=== PATIENT | male | born 1980 | race Caucasian/White ===

== ENCOUNTER 2021-01-02 02:54 | Emergency (ER) | payer MEDICAID ==
[~2021-01-02] VITALS: Ht 175.3 cm; Wt 100.5 kg
--- NOTE | 2021-01-02 03:10 | PHYS DOC ---
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 Denies any recent traumas, travels, fevers, chest pain, shortness of breath, abdominal pain, nausea, vomiting, dysuria, hematuria or blood in the stool. States he does think he has had decreased urine output however though. Denies any blood in the urine or stool. States st ool is normal. States he is taking all his medications as prescribed. Review of Systems Review of Systems Review of systems otherwise unremarkable except noted in HPI Physical Exam Physical Exam Constitutional: Well developed, well nourished, no acute distress, non-toxic appearance. [] HENT: Normocephalic, atraumatic, bilateral external ears normal, oropharynx moist, no oral exudates, nose normal. [] Eyes: conjunctiva normal, no discharge. [] Neck: Normal range of motion, no tenderness, supple, no stridor. [] Cardiovascular:Heart rate regular rhythm, no murmur [] Lungs & Thorax: Bilateral breath sounds clear to auscultation [] Abdomen: Bowel sounds normal, soft, no tenderness, no masses, no pulsatile masses. [] Skin: Warm, dry, no erythema, no rash. [] Back: No tenderness, no CVA tenderness. [] Extremities: No tenderness, no cyanosis, no clubbing, ROM intact, mild bilateral pitting edema Neurologic: Alert and oriented X 3, normal motor function, normal sensory function, no focal deficits noted. [] Psychologic: Affect normal, judgement normal, mood normal. [] EKG EKG [] Radiology/Procedures Radiology/Procedures [] Heart Score C/O Chest Pain: No Risk Factors: Risk Factors: DM, Current or recent (<one month) smoker, HTN, HLP, family history of CAD, obesity. Risk Scores: Risk Factors: DM, Current or recent (<one month) smoker, HTN, HLP, family history of CAD, obesity. Course & Med Decision Making Course & Med Decision Making Patient is a 40-year-old male with a past history significant for heart transplant x2 on rejection meds who presents with shortness of breath and weight gain Vital signs initially notable for hypertension which improved during ED stay and mild tachypnea with normoxia. Placed on the monitor with IV access established. EKG with a rate of 76, QRS of 88, QTc of 400, no STEMI and slightly elevated BNP. Chest x-ray with enlarged cardiac silhouette and pulmonary vascular congestion. Laboratory analysis notable for mildly elevated creatinine at 1.5 which patient states is slightly above his normal of about 1.3 and hypomagnesemia. Started on light diuresis and replaced magnesium. Discussed all findings with patient and recommended admission for continued evaluation and treatment of his shortness of air/pulmonary edema and cardiology consult. Discussed patient with [facility] as his transplant team and transplant took place at [facility] on the [place]. Patient transferred to [facility]. [] Dragon Disclaimer Dragon Disclaimer This electronic medical record was generated, in whole or in part, using a voice recognition dictation system. Departure Departure: Impression: Primary Impression: Pulmonary edema Additional Impressions: Shortness of breath Bilateral lower extremity edema Disposition: 02 SHORT TERM [facility]OSPITAL Condition: IMPROVED Referrals: ARABELLA MURRY MD (PCP) Problem Qualifiers SIDDHARTHA SHARPE MD Jan 02, 2021 03:10
--- NOTE | 2021-01-02 03:38 | RAD ---
XR CHEST 1V History: Cough, short of air, extremity swelling, history of heart transplant. Comparison: None. Technique: Portable AP radiograph of the chest. Findings: Single lead left chest cardiac pacemaker with lead tip projecting in the region of the right atrium. Enlarged cardiac silhouette with cephalized pulmonary vasculature. Surgical changes of the sternum an d mediastinum. No focal airspace consolidation, pleural effusion or pneumothorax. Osseous structures and soft tissues are unremarkable. Impression: 1. Enlarged cardiac silhouette with pulmonary vascular congestion. Electronically signed by: Barron Samaniego MD (01/02/2021 3:35 AM) [facility]
[2021-01-02 04:07] LABS: BACTERIA,URINE 0 /HPF (0-FEW); BILIRUBIN,URINE NEG (NEG); CLARITY,URINE CLEAR; COLOR,URINE YELLOW; GLUCOSE,URINE NEG (NEG); NITRITE,URINE NEG (NEG); RBC,URINE RARE /HPF (0-2); SQUAMOUS EPITHELIAL CELL,UR OCC /LPF; UROBILINOGEN,URINE 0.2 mg/dL (0.2 mg/dL)
[2021-01-02 04:07] LABS: CALCIUM 8.1 mg/dL (8.5-10.1); CREATININE 1.5 mg/dL (0.7-1.3); GFR 52.1
[2021-01-02 04:11] LABS: BASO # 0.1 x10^3/uL (0.0-0.2); BASO % 1 % (0-3); EOS # 0.1 x10^3/uL (0.0-0.7); EOS % 1 % (0-3); HEMATOCRIT 41.4 % (39.0-53.0); LYMPH # 1.5 x10^3/uL (1.0-4.8); LYMPH % 16 % (24-48); MEAN CORPUSCULAR HEMOGLOBIN 31 pg (25-35); MEAN CORPUSCULAR HGB CONC 34 g/dL (31-37); MEAN CORPUSCULAR VOLUME 92 fL (79-100); MONO % 11 % (0-9); NEUT # 6.6 x10^3uL (1.8-7.7); NEUT % 71 % (31-73); PLATELET COUNT 295 x10^3/uL (140-400); RED BLOOD COUNT 4.49 x10^6/uL (4.30-5.70); RED CELL DISTRIBUTION WIDTH 14.5 % (11.5-14.5); WHITE BLOOD COUNT 9.3 x10^3/uL (4.0-11.0)
[2021-01-02 04:20] LABS: ALBUMIN 3.1 g/dL (3.4-5.0); ALBUMIN/GLOBULIN RATIO 0.8 (1.0-1.7); MAGNESIUM 1.5 mg/dL (1.8-2.4); TOTAL BILIRUBIN 0.3 mg/dL (0.2-1.0); TOTAL PROTEIN 6.8 g/dL (6.4-8.2)
[2021-01-02] MEDS ORDERED: FUROSEMIDE 40 MG/4 ML VIAL IVP ONE (04:45)
[2021-01-02] MEDS ORDERED: MAGNESIUM SULFATE 2GM 50 ML IV ONE (04:45)
--- NOTE | 2021-01-02 06:24 | EKG ---
[address] [address] Test Date: 2021-01-02 Test Time: 03:32:00 Pat Name: JOVANI DORAN Department: Room: Gender: M [employer] Work[employer]: : 1980 Requested By: SIDDAHRTHA SHARPE Order Number: [id number] Reading MD: Db Lundy Measurements Intervals [place] Rate: 76 P: 36 [place]: 138 QRS: 14 QRSD: 88 T: 15 QT: 352 QTc: 400 Interpretive Statements SINUS RHYTHM NONSPECIFIC ST T WAVE CHANGES Electronically Signed On 01-05-2021 10:27:52 [employer] by Db Lundy
[2021-01-02 06:39] VITALS: BP 152/90
== END 2021-01-02 06:46 | disposition short-term general hospital (02) ==
LOC: ER 02:54
DX: R60.0 Localized edema (principal); Z20.822 Contact with and (suspected) exposure to COVID-19
CPT/HCPCS: 36415; 71045; 80053; 81001; 83735; 83880; 84484; 85025; 87426; 93005; 96365; 96366; 96375; 99285; C9803; J1940; J3475; U0003